=== PATIENT | male | born 1935 | race Caucasian/White ===

== ENCOUNTER → 2017-10-26 | Outpatient (CLI) | payer BC ==
[~2017-10-26] MED LIST: GLUCOPHAGE500 MG/TAB PO; LOTENSIN40 MG PO; MULTIPLE VITAMI1 TAB PO; NORVASC 5MG5 MG/TAB PO; OMEGA 31000 MG PO
== END ==
LOC: COL.RAD 11:58
DX: M51.16 Intervertebral disc disorders with radiculopathy, lumbar region (principal); M99.73 Connective tissue and disc stenosis of intervertebral foramina of lumbar region; M48.061 Spinal stenosis, lumbar region without neurogenic claudication; M47.816 Spondylosis without myelopathy or radiculopathy, lumbar region; M43.16 Spondylolisthesis, lumbar region

== ENCOUNTER → 2017-11-10 | Outpatient (CLI) | payer BC | LOC: MHCPAIN 09:55 | DX: G89.29 Other chronic pain (principal); M47.817 Spondylosis without myelopathy or radiculopathy, lumbosacral region; M54.16 Radiculopathy, lumbar region; M53.3 Sacrococcygeal disorders, not elsewhere classified; M48.061 Spinal stenosis, lumbar region without neurogenic claudication | CPT/HCPCS: G0463 ==

== ENCOUNTER → 2017-11-19 | Outpatient (CLI) | payer BC | LOC: MHCPAIN 09:49 | DX: M47.817 Spondylosis without myelopathy or radiculopathy, lumbosacral region (principal); M54.16 Radiculopathy, lumbar region | CPT/HCPCS: J1040; Q9967 ==

== ENCOUNTER → 2017-12-21 | Outpatient (CLI) | payer BC | LOC: MHCPAIN 10:03 | DX: G89.29 Other chronic pain (principal); M47.817 Spondylosis without myelopathy or radiculopathy, lumbosacral region; M54.16 Radiculopathy, lumbar region; M53.3 Sacrococcygeal disorders, not elsewhere classified; M48.061 Spinal stenosis, lumbar region without neurogenic claudication | CPT/HCPCS: G0463 ==

== ENCOUNTER 2020-11-15 10:53 | Emergency (ER) | payer BC ==
[~2020-11-15] VITALS: Ht 175.3 cm; Wt 111.4 kg
[2020-11-15 11:12] LABS: BASO # 0.1 (0.0-0.2); BASO % 0.8 % (0.0-2.0); EOS # 0.1 (0.0-0.7); EOS % 0.6 % (0-4.0); GRAN # 5.7 (1.4-6.5); HEMATOCRIT 50.6 % (42.0-52.0); HEMOGLOBIN 16.7 g/dl (13.5-18.0); LYMPH # 3.3 (1.2-3.4); LYMPH % 33.1 % (20.0-51.0); MEAN CELL VOLUME 94 fl (80.0-100.0); MEAN CORPUSCULAR HEMOGLOBIN 31 pg (27.0-31.0); MEAN CORPUSCULAR HGB CONC 33 g/dl (33.0-37.0); MEAN PLATELET VOLUME 10.8 fl (7.4-10.4); MONO # 0.8 (0.1-0.6); MONO % 7.7 % (1.7-9.3); PLATELET COUNT 208 K/mm3 (130-400); RED BLOOD COUNT 5.38 M/mm3 (4.20-5.60); REDCELL DISTRIBUTION WIDTH-CV 13.3 % (11.5-14.5)
[2020-11-15 11:20] LABS: BILIRUBIN,TOTAL 0.6 mg/dL (0.0-1.0); CALCIUM 9.1 mg/dL (8.4-10.2); CREATININE, serum 1.21 (0.66-1.25); POTASSIUM 4.4 mmol/L (3.4-5.0); TOTAL PROTEIN 7.2 gm/dL (6.4-8.2)
[2020-11-15 11:25] LABS: PARTIAL THROMBOPLASTIN TIME 27.5 SECONDS (26.0-37.0)
[2020-11-15 11:32] LABS: TROPONIN-I 0.019 ng/mL (0.000-0.035)
--- NOTE | 2020-11-15 11:37 | NUR ---
SW met with patients Fatou Chairez . Patient reports PCP is Dr. Ankit Hoover in [place], [place]. Patient obtains medications from [facility] on [address]. reports that she does not remember patients medications. Patient is on Atorvasatin and Metformin. SW contact [facility], they report that they can not release the information. would need DPOA. SW called Dr. [facility] and Nurse Cinthya stated she will fax the medication list to [facility]. Educated on supports available to her. Patient does not use any DME support and is reported to be independent. reports that she does not have a POA, no 02 at home or heart related DME. 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 Arriaga. NF
--- NOTE | 2020-11-15 12:09 | NUR ---
Initial visit; Project Coordinator Rn called to Emergency Services Department to offer Spiritual Care to patient's while patient was being prepared to transport to [place] for treatment. Project Coordinator Rn offered comfort, encouragement and prayer for Lorie.
[2020-11-15 12:26] VITALS: BP 145/62; PULSE 80
== END 2020-11-15 12:27 | disposition short-term general hospital (02) ==
LOC: COL.ER 10:53
PROVIDERS: Emergency Medicine
DX: I21.3 ST elevation (STEMI) myocardial infarction of unspecified site (principal); I44.2 Atrioventricular block, complete; I10 Essential (primary) hypertension; E11.9 Type 2 diabetes mellitus without complications; Z20.822 Contact with and (suspected) exposure to COVID-19; Z88.6 Allergy status to analgesic agent; Z79.84 Long term (current) use of oral hypoglycemic drugs; Z79.899 Other long term (current) drug therapy
CPT/HCPCS: J1644; J3101; J7060